=== PATIENT | female | born 1990 | race Caucasian/White ===

== ENCOUNTER → 2020-02-04 08:47 | Outpatient (BNVA) | payer OTHER, SELFPAY | PROVIDERS: PCP Nurse Practitioner Family; Referring Provider Nurse Practitioner Family; Visit Provider Internal Medicine | DX: Z76.89 Persons encountering health services in other specified circumstances (principal) ==

== ENCOUNTER → 2020-05-12 08:35 | Outpatient (BNVA) | payer OTHER, SELFPAY | PROVIDERS: PCP Physician Assistant Medical; Visit Provider Internal Medicine ==

== ENCOUNTER 2020-05-18 16:34 | Outpatient (REF) | payer OTHER, SELFPAY ==
--- NOTE | ~2020-05-18 | MR_ITS ---
EXAMINATION: MR BRAIN WITHOUT AND WITH CONTRAST CLINICAL INFORMATION: 29-year-old followup pituitary lesion. COMPARISON: 05/27/2018 MRI TECHNIQUE: Multiplanar, multisequence MRI of the brain/sella was obtained before and after the intravenous administration of 5 mL Gadavist. FINDINGS: The previously noted mass-like appearance to the left side of the pituitary gland is no longer evident. Previous convex upward configuration to the elevated gland height on the left now shows relative volume loss with a convex configuration to the superior aspect of the gland which may be secondary to treatment effects. The right side of the gland is stable in size and configuration and enhances slightly heterogeneously. The infundibulum is still deviated slightly to the right of midline but enhances normally. Cavernous sinuses enhance normally. Note that there may be a small amount of residual lesion on the far lateral side of the sella on the left adjacent to the cavernous sinus. No suprasellar or juxtasellar masses are identified. There is no evidence for compromise of the adjacent optic nerves, chiasm or optic tracts. Otherwise, the brain is normal in morphology and signal intensity. DWI imaging demonstrates no restricted diffusion. Postcontrast whole brain imaging demonstrates no other intracranial mass lesions, abnormal enhancement, space-occupying process, or mass effect. The ventricular system and subarachnoid spaces are within normal limits, unchanged in appearance without hydrocephalus. Signal voids are noted in the visualized major intracranial vessels. Redemonstrated is minimal fluid in the left mastoid, unchanged in appearance. Minimal mucosal thickening in the ethmoid complex and maxillary sinuses again noted. Craniocervical junction is intact. MR/MR head/brain wo/w con IMPRESSION: Presumed posttreatment effects on the left side of the pituitary gland, as described above. There may be a minimal degree of residual tumor along the left lateral aspect of the sella adjacent to the cavernous sinus, but there is now relative volume loss and concavity along the superior surface of the gland at this location suggesting regression and/or treatment response. Follow-up as per clinical indications.
== END 2020-05-18 16:35 | disposition home or self-care (01) ==
LOC: HO.MRI 16:34
PROVIDERS: Visit Provider Internal Medicine
DX: D35.2 Benign neoplasm of pituitary gland (principal)
CPT/HCPCS: 70553; A9585

== ENCOUNTER 2020-05-21 09:36 | Outpatient (REF) | payer OTHER, SELFPAY ==
[2020-05-21 10:52] LABS: Anion Gap 13 (12-20); Blood Urea Nitrogen 10 mg/dL (9-16); Calcium 9.2 mg/dL (8.4-10.2); Carbon Dioxide 24 mmol/L (22-29); Chloride 108 mmol/L (96-108); Estimated Glomerular Filt Rate > 60; Glucose Random 86 mg/dL (60-115); Potassium 4.4 mmol/L (3.3-5.1); Sodium 141 mmol/L (135-145)
[2020-05-21 11:17] LABS: Free T4 (Free Thyroxine) 0.91 ng/dL (0.71-1.85); Thyroid Stimulating Hormone 0.37 uIU/mL (0.32-4.0); Vitamin D 25-OH Total 22.5 ng/mL (>30)
[2020-05-22 08:56] LABS: Follicle Stimulating Hormone 10.3 mIU/mL; Lutenizing Hormone 2.4 mIU/mL; Prolactin 40.7 ng/mL; Triiodothyronine T3 Total 102 ng/dL (76-181)
[2020-05-22 10:07] LABS: Sex Hormone Binding Globulin 43 nmol/L (17-124)
[2020-05-24 13:21] LABS: IGF-1 (Somatomedin C) 178 ng/mL (63-373); IGF-1 Z Score (Female) 0.2 SD (-2.0 - +2.0)
[2020-05-25 19:12] LABS: Estradiol Ultra Sensitive 14 pg/mL
[2020-05-27 14:16] LABS: Estradiol Free 0.24 pg/mL; Estradiol, Ultrasensitive 13 pg/mL
== END 2020-05-21 09:37 | disposition home or self-care (01) ==
LOC: HO.10HDL 09:36
PROVIDERS: Visit Provider Internal Medicine
DX: D35.2 Benign neoplasm of pituitary gland (principal); E55.9 Vitamin D deficiency, unspecified
CPT/HCPCS: 36415; 80048; 82306; 82670; 82681; 83001; 83002; 84146; 84270; 84305; 84439; 84443; 84480

== ENCOUNTER → 2020-05-27 12:06 | Outpatient (BNVA) | payer OTHER, SELFPAY | PROVIDERS: PCP Internal Medicine; Visit Provider Internal Medicine ==

== ENCOUNTER → 2021-07-04 11:57 | Outpatient (BNVA) | payer OTHER, MEDICAID, SELFPAY | PROVIDERS: PCP Internal Medicine; Visit Provider Internal Medicine | DX: D35.2 Benign neoplasm of pituitary gland (principal) ==

== ENCOUNTER 2021-08-05 07:58 | Outpatient (REF) | payer OTHER, MEDICAID, SELFPAY ==
--- NOTE | ~2021-08-05 | MR_ITS ---
MR BRAIN WITHOUT AND WITH CONTRAST CLINICAL INFORMATION: Benign neoplasm of the pituitary gland. COMPARISON: Brain MRI 05/18/2020. TECHNIQUE: Multiplanar, multisequence MRI of the brain was obtained before and after the intravenous administration of 5 mL of Gadavist. FINDINGS: Similar in comparison to the 05/18/2020 brain MRI, there is mild ill-defined hypoenhancement within the left aspect of the anterior pituitary lobe measuring 4 mm presumably reflecting treated pituitary adenoma which is significantly decreased in size in comparison to the original 05/27/2018 MRI. There is no sellar/suprasellar mass effect. The cavernous sinuses are symmetric and normal. No mass effect and the optic nerve apparatus. Infundibulum remains slightly directed towards the right. There is no pathologic intracranial enhancement. There is no hydrocephalus, extra-axial surface collection, or herniation. The major flow voids at the skull base are preserved. There is no acute infarct on diffusion-weighted imaging. The cerebellar tonsils are normally positioned. The cerebellum and brainstem are normal. The craniocervical junction is normal. Osseous marrow signal intensity is homogenous. The visualized soft tissues are unremarkable. MR/MR head/brain wo/w con IMPRESSION: Similar in comparison to the 05/18/2020 brain MRI, there is mild ill-defined hypoenhancement within the left aspect of the anterior pituitary lobe measuring 4 mm presumably reflecting treated pituitary adenoma which is significantly decreased in size in comparison to the original 05/27/2018 MRI. There is no sellar/suprasellar mass effect.
== END 2021-08-05 07:59 | disposition home or self-care (01) ==
LOC: HO.MRI 07:58
PROVIDERS: PCP Internal Medicine; Visit Provider Internal Medicine Endocrinology, Diabetes & Metabolism
DX: D35.2 Benign neoplasm of pituitary gland (principal)
CPT/HCPCS: 70553; A9585

== ENCOUNTER 2021-10-04 07:48 | Outpatient (REF) | payer OTHER, MEDICAID, SELFPAY ==
[2021-10-04 09:22] LABS: Osmolality, Serum 296 mosm/kg (281-305)
[2021-10-04 09:24] LABS: Anion Gap 15 (12-20); Blood Urea Nitrogen 10 mg/dL (9-16); Carbon Dioxide 24 mmol/L (22-29); Chloride 108 mmol/L (96-108); Estimated Glomerular Filt Rate > 60; Glucose Random 79 mg/dL (60-115); Potassium 4.2 mmol/L (3.3-5.1); Sodium 143 mmol/L (135-145)
[2021-10-04 09:25] LABS: Calcium 8.9 mg/dL (8.4-10.2)
[2021-10-04 09:47] LABS: Free T4 (Free Thyroxine) 0.91 ng/dL (0.71-1.85); Thyroid Stimulating Hormone 0.44 uIU/mL (0.32-4.0); Vitamin D 25-OH Total 20.8 ng/mL (>30)
[2021-10-04 10:38] LABS: Cortisol Random 9.1 ug/dL
[2021-10-05 08:53] LABS: Triiodothyronine T3 Total 104 ng/dL (76-181)
[2021-10-05 17:43] LABS: Sex Hormone Binding Globulin 54 nmol/L (17-124)
[2021-10-05 20:47] LABS: Follicle Stimulating Hormone 9.6 mIU/mL; Lutenizing Hormone 2.1 mIU/mL; Prolactin Undiluted 33.5 ng/mL
[2021-10-07 14:42] LABS: Adrenocorticotropic Hormone 17 pg/mL (6-50)
[2021-10-08 18:36] LABS: IGF-1 (Somatomedin C) 156 ng/mL (53-331)
[2021-10-14 03:37] LABS: Estradiol Free 0.32 pg/mL; Estradiol, Ultrasensitive 17 pg/mL
== END 2021-10-04 07:49 | disposition home or self-care (01) ==
LOC: HO.10HDL 07:48
PROVIDERS: Visit Provider Internal Medicine
DX: D35.2 Benign neoplasm of pituitary gland (principal); E55.9 Vitamin D deficiency, unspecified
CPT/HCPCS: 36415; 80048; 82024; 82306; 82533; 82670; 82681; 83001; 83002; 83930; 84146; 84270; 84305; 84439; 84443; 84480

== ENCOUNTER 2022-09-27 07:49 | Outpatient (AMB) | payer OTHER, MEDICAID, SELFPAY ==
--- NOTE | 2022-09-27 07:49 | A.OFFVIS_ITS ---
Intake Intake Visit Reasons: Hyperprolactinemia, labs & Med Allergies No Known Allergies [No Known Allergies*] Allergy (Verified 09/27/22 08:08) bee sting Allergy (Unknown, Uncoded 09/27/22 08:08) anaphylaxis bee stings Allergy (Unknown, Uncoded 09/27/22 08:08) Unknown Medication List - Last Reconciled 09/27/22 by Tammy Velazco DO cholecalciferol (vitamin D3) 125 mcg PO DAILY ferrous sulfate 324 mg PO DAILY multivitamin with minerals (Hair,Skin and Nails tablet) 2 tabs PO DAILY phentermine 37.5 mg PO QAM vit,[id number] 29-1 mg 1 tab PO DAILY HPI HPI Comments History of Present Illness Details 32 YO Female with no significant PMHx who is seen in F/U for microprolactinoma. During evaluation for infertility she had Prolactin assessed which was found to be 128.8. This was repeated and found to be 144.2. She was subsequently referred to Endocrinology. We repeated full pituitary panel and found Prolactin to be elevated to 128 as of 05/30/18. She had pituitary MRI which revealed a 7 mm microadenoma. FSH, LH and Estradiol were all found to be low. She did have am Cortisol which was also slightly low at 6.3 with ACTH of 23. She had subsequent cosyntropin stim test which was appropriate. She was started on Bromocriptine and did take this for approximately 1 month. She reported worsening depression and suicidal ideations so this was stopped and she was switched to OCP. However, shortly after starting OCP she found out she was , so this was also stopped. She then followed up after completed and she was started on Cabergoline. However, shortly after starting that she again became . She now has 2 healthy boys, her youngest being 7 months old. She stopped in February 2021, but does state she continues to have occasional galactorrhea. She denies any significant headaches or visual changes. She had a repeat MRI 08/05/2021 which showed regression of her previous microadenoma to 4 mm. She did undergo bariatric surgery in October 2019 and hast lost a total of 75 lbs. She had labs completed at [facility] which revealed her prolactin had risen to >80. Remaining pituitary labs were WNL. Pituitary MRI: 08/05/2021 FINDINGS: Similar in comparison to the 05/18/2020 brain MRI, there is mild ill-defined hypoenhancement within the left aspect of the anterior pituitary lobe measuring 4 mm presumably reflecting treated pituitary adenoma which is significantly decreased in size in comparison to the original 05/27/2018 MRI. There is no sellar/suprasellar mass effect. The cavernous sinuses are symmetric and normal. No mass effect and the optic nerve apparatus. Infundibulum remains slightly directed towards the right. There is no pathologic intracranial enhancement. There is no hydrocephalus, extra-axial surface collection, or herniation. The major flow voids at the skull base are preserved. There is no acute infarct on diffusion-weighted imaging. The cerebellar tonsils are normally positioned. The cerebellum and brainstem are normal. The craniocervical junction is normal. Osseous marrow signal intensity is homogenous. The visualized soft tissues are unremarkable. MR/MR head/brain wo/w con IMPRESSION: Similar in comparison to the 05/18/2020 brain MRI, there is mild ill-defined hypoenhancement within the left aspect of the anterior pituitary lobe measuring 4 mm presumably reflecting treated pituitary adenoma which is significantly decreased in size in comparison to the original 05/27/2018 MRI. There is no sellar/suprasellar mass effect. Labs: 05/07/18 Prolactin 144.2 Total Testosterone = 23 Free Testosterone = 4.0 Chol = 195 Trig = 143 LDL = 138 HDL = 29 A1C = 5.1 Vitamin D = 19.5 05/01/18 Prolactin = 128.8. [facility] Medical History Microprolactinoma Vitamin D deficiency Surgical History History of bariatric surgery Family History Father Hypertension Mother Diabetes Social History Alcohol intake: never Patient Tobacco Use Status: Never used Tobacco Assessment & Plan Assessment & Plan (1) Microprolactinoma: Code(s): D35.2 - Benign neoplasm of pituitary gland Plan: Patient with a microprolactinoma. She was previously on Bromocriptine, but did not tolerate this well. It did allow ovulation and she conceived shortly after. Labs reveal persistent elevation of her Prolactin, though she is having normal menses. She then became again shortly after starting cabergoline, and stopped this immediately upon finding out she was . She does report occasional galactorrhea spontaneously. Repeat pituitary MRI reveals her pituitary microadenoma has decreased in size slightly, now measruing 4 mm. This does appear to be a prolactinoma with elevated prolactin level of 88. She is due for a repeat pituitary MRI, so I have ordered this. I also advised she start the combined hormonal OCP which her [employer] prescribed for her. She will start this now and repeat labs in 2 months time. I advised she notify us of any headaches or visual changes. She states she will do so. All of her questions were answered. She is in agreement with this plan of care. I spent 20 minutes in reviewing the record, seeing the patient and documenting in the medical record, including 5 minutes on the phone with the Patient. Orders: Orders MR head/brain wo/w con Today D35.2 - Benign neoplasm of pituitary gland Telehealth Telehealth Location of provider rendering services: practice address Location of patient: address on file Patient Identification confirmed using: Name, : Yes Telehealth method: voice only Patient verbally consented to treatment: Yes Patient verbally consented to billing insurance company: Yes Patient informed of any privacy concerns related to visit: Yes Coding Level of Care Code Tele Est Pt Level 3 (29238) Diagnoses Microprolactinoma D35.2
== END 2022-09-27 08:15 | disposition home or self-care (01) ==
LOC: HO.ENCR 07:49
PROVIDERS: PCP Internal Medicine; Visit Provider Internal Medicine
DX: D35.2 Benign neoplasm of pituitary gland (principal)
CPT/HCPCS: 99213

== ENCOUNTER → 2022-09-27 07:49 | Outpatient (BNVA) | payer OTHER, MEDICAID, SELFPAY | PROVIDERS: PCP Internal Medicine; Visit Provider Internal Medicine ==